=== PATIENT | male | born 1950 | race Native Hawaiian/Other Pacific Islander ===

== ENCOUNTER 2017-10-18 09:08 | Outpatient (CLI) | payer OTHER, MEDICARE ==
[2017-10-18 09:54] LABS: POTASSIUM 3.7 mmol/L (3.6-5.2)
== END 2017-10-18 22:15 | disposition home or self-care (01) ==
LOC: LABW 09:08
PROVIDERS: Internal Medicine
DX: E78.4 Other hyperlipidemia (principal); Z79.899 Other long term (current) drug therapy; Z51.81 Encounter for therapeutic drug level monitoring
CPT/HCPCS: 36415; 80048; 80061; 82550; 84450; 84460

== ENCOUNTER 2019-04-03 09:47 | Outpatient (CLI) | payer OTHER, MEDICARE ==
[2019-04-03 10:09] LABS: PLATELET COUNT 268 K/uL (142-355)
[2019-04-03 10:26] LABS: POTASSIUM 4.2 mmol/L (3.6-5.2)
== END 2019-04-03 20:18 | disposition home or self-care (01) ==
LOC: LABW 09:47
PROVIDERS: Internal Medicine
DX: I10 Essential (primary) hypertension (principal)
CPT/HCPCS: 36415; 80053; 80061; 81000; 84439; 84443; 85027

== ENCOUNTER 2019-10-22 08:32 | Outpatient (CLI) | payer OTHER, MEDICARE ==
[2019-10-22 09:25] LABS: POTASSIUM 4.4 mmol/L (3.6-5.2)
[2019-10-22 09:53] LABS: PLATELET COUNT 216 K/uL (142-355)
== END 2019-10-22 19:21 | disposition home or self-care (01) ==
LOC: LABW 08:32
PROVIDERS: Internal Medicine
DX: I10 Essential (primary) hypertension (principal); E78.00 Pure hypercholesterolemia, unspecified
CPT/HCPCS: 36415; 80053; 80061; 81000; 84439; 84443; 85027

== ENCOUNTER 2019-12-07 10:20 | Outpatient (CLI) | payer OTHER, MEDICARE | END 2019-12-07 19:31 | disposition home or self-care (01) | LOC: LAB 10:20 | DX: Z20.828 Contact with and (suspected) exposure to other viral communicable diseases (principal) | CPT/HCPCS: 87635; G2023; U0003 ==

== ENCOUNTER 2020-04-15 08:34 | Outpatient (CLI) | payer OTHER, MEDICARE ==
[2020-04-15 09:01] LABS: PLATELET COUNT 245 K/uL (142-355)
[2020-04-15 09:24] LABS: POTASSIUM 4.9 mmol/L (3.6-5.2)
== END 2020-04-15 21:54 | disposition home or self-care (01) ==
LOC: LABW 08:34
PROVIDERS: ATTEND Internal Medicine
DX: I10 Essential (primary) hypertension (principal); J44.9 Chronic obstructive pulmonary disease, unspecified; E78.00 Pure hypercholesterolemia, unspecified; F32.89 Other specified depressive episodes; Z12.5 Encounter for screening for malignant neoplasm of prostate; N40.0 Benign prostatic hyperplasia without lower urinary tract symptoms
CPT/HCPCS: 36415; 80053; 80061; 84153; 84439; 84443; 85027

== ENCOUNTER 2020-05-14 10:53 | Outpatient (CLI) | payer OTHER, MEDICARE | END 2020-05-14 19:39 | disposition home or self-care (01) | LOC: LAB 10:53 | PROVIDERS: ATTEND Internal Medicine | DX: J44.1 Chronic obstructive pulmonary disease with (acute) exacerbation (principal); Z11.59 Encounter for screening for other viral diseases | CPT/HCPCS: 87635; G2023; U0003 ==

== ENCOUNTER 2020-08-19 10:32 | Outpatient (CLI) | payer OTHER, MEDICARE | END 2020-08-19 21:02 | disposition home or self-care (01) | LOC: LABW 10:32 | PROVIDERS: ATTEND Internal Medicine Endocrinology, Diabetes & Metabolism | DX: E88.81 Metabolic syndrome and other insulin resistance (principal); Z79.899 Other long term (current) drug therapy | CPT/HCPCS: 36415; 83036 ==

== ENCOUNTER 2020-10-01 12:59 | Outpatient (CLI) | payer OTHER, MEDICARE ==
[~2020-10-01] VITALS: Ht 182.9 cm; Wt 79.8 kg
== END 2020-10-01 21:06 | disposition home or self-care (01) ==
LOC: DIABINF 12:59
PROVIDERS: ATTEND Internal Medicine Endocrinology, Diabetes & Metabolism
DX: E88.81 Metabolic syndrome and other insulin resistance (principal); I10 Essential (primary) hypertension; E78.2 Mixed hyperlipidemia; R73.9 Hyperglycemia, unspecified; Z72.0 Tobacco use; F41.8 Other specified anxiety disorders; F32.9 Major depressive disorder, single episode, unspecified; J43.8 Other emphysema
CPT/HCPCS: 82948; 96365; 96366; 96521; J1815; J1817

== ENCOUNTER 2020-10-03 12:58 | Outpatient (CLI) | payer OTHER, MEDICARE ==
[~2020-10-03] VITALS: Ht 182.9 cm; Wt 79.8 kg
== END 2020-10-03 20:10 | disposition home or self-care (01) ==
LOC: DIABINF 12:58
PROVIDERS: ATTEND Internal Medicine Endocrinology, Diabetes & Metabolism
DX: E88.81 Metabolic syndrome and other insulin resistance (principal); I10 Essential (primary) hypertension; E78.2 Mixed hyperlipidemia; E11.40 Type 2 diabetes mellitus with diabetic neuropathy, unspecified; Z72.0 Tobacco use; F41.1 Generalized anxiety disorder; F33.0 Major depressive disorder, recurrent, mild; J43.8 Other emphysema; I42.8 Other cardiomyopathies; N52.8 Other male erectile dysfunction
CPT/HCPCS: 82948; 96365; 96366; 96521; J1815; J1817

== ENCOUNTER 2020-10-08 12:37 | Outpatient (CLI) | payer OTHER, MEDICARE ==
[~2020-10-08] VITALS: Ht 182.9 cm; Wt 80.9 kg
== END 2020-10-08 23:04 | disposition home or self-care (01) ==
LOC: DIABINF 12:37
PROVIDERS: ATTEND Internal Medicine Endocrinology, Diabetes & Metabolism
DX: E88.81 Metabolic syndrome and other insulin resistance (principal); I10 Essential (primary) hypertension; E78.2 Mixed hyperlipidemia; E11.40 Type 2 diabetes mellitus with diabetic neuropathy, unspecified; Z72.0 Tobacco use; F41.1 Generalized anxiety disorder; F33.0 Major depressive disorder, recurrent, mild; J43.8 Other emphysema; I42.8 Other cardiomyopathies; N52.8 Other male erectile dysfunction
CPT/HCPCS: 82948; 96365; 96366; 96521; J1815; J1817

== ENCOUNTER 2020-10-10 12:39 | Outpatient (CLI) | payer OTHER, MEDICARE ==
[~2020-10-10] VITALS: Ht 182.9 cm; Wt 80.9 kg
== END 2020-10-10 19:20 | disposition home or self-care (01) ==
LOC: DIABINF 12:39
PROVIDERS: ATTEND Internal Medicine Endocrinology, Diabetes & Metabolism
DX: E88.81 Metabolic syndrome and other insulin resistance (principal); I10 Essential (primary) hypertension; E78.2 Mixed hyperlipidemia; E11.40 Type 2 diabetes mellitus with diabetic neuropathy, unspecified; Z72.0 Tobacco use; F41.1 Generalized anxiety disorder; F33.0 Major depressive disorder, recurrent, mild; J43.8 Other emphysema; I42.8 Other cardiomyopathies; N52.8 Other male erectile dysfunction
CPT/HCPCS: 82948; 96365; 96366; 96521; J1815; J1817

== ENCOUNTER 2020-10-17 12:20 | Outpatient (CLI) | payer OTHER, MEDICARE ==
[~2020-10-17] VITALS: Ht 182.9 cm; Wt 80.9 kg
== END 2020-10-17 16:00 | disposition home or self-care (01) ==
LOC: DIABINF 12:20
PROVIDERS: ATTEND Internal Medicine Endocrinology, Diabetes & Metabolism
DX: E11.9 Type 2 diabetes mellitus without complications (principal); Z72.0 Tobacco use; E78.2 Mixed hyperlipidemia; I10 Essential (primary) hypertension; F41.8 Other specified anxiety disorders; F32.89 Other specified depressive episodes; J43.8 Other emphysema; I34.0 Nonrheumatic mitral (valve) insufficiency; I51.7 Cardiomegaly; I77.819 Aortic ectasia, unspecified site
CPT/HCPCS: 82948; 96365; 96366; 96521; J1815; J1817

== ENCOUNTER 2020-10-24 12:48 | Outpatient (CLI) | payer OTHER, MEDICARE ==
[~2020-10-24] VITALS: Ht 182.9 cm; Wt 80.9 kg
== END 2020-10-24 16:00 | disposition home or self-care (01) ==
LOC: DIABINF 12:48
PROVIDERS: ATTEND Nurse Practitioner
DX: E11.40 Type 2 diabetes mellitus with diabetic neuropathy, unspecified (principal); I10 Essential (primary) hypertension; E78.00 Pure hypercholesterolemia, unspecified; N52.9 Male erectile dysfunction, unspecified; J43.8 Other emphysema; F17.210 Nicotine dependence, cigarettes, uncomplicated
CPT/HCPCS: 82948; 96365; 96366; 96521; J1815; J1817

== ENCOUNTER 2020-10-31 12:43 | Outpatient (CLI) | payer OTHER, MEDICARE ==
[~2020-10-31] VITALS: Ht 182.9 cm; Wt 80.9 kg
== END 2020-10-31 23:20 | disposition home or self-care (01) ==
LOC: DIABINF 12:43
PROVIDERS: ATTEND Internal Medicine Endocrinology, Diabetes & Metabolism
DX: E88.81 Metabolic syndrome and other insulin resistance (principal); I10 Essential (primary) hypertension; E78.2 Mixed hyperlipidemia; E11.40 Type 2 diabetes mellitus with diabetic neuropathy, unspecified; Z72.0 Tobacco use; F41.1 Generalized anxiety disorder; F33.8 Other recurrent depressive disorders; J43.8 Other emphysema; I42.8 Other cardiomyopathies; N52.8 Other male erectile dysfunction; H26.8 Other specified cataract
CPT/HCPCS: 82948; 96365; 96366; 96521; J1815; J1817

== ENCOUNTER 2020-11-07 12:42 | Outpatient (CLI) | payer OTHER, MEDICARE ==
[~2020-11-07] VITALS: Ht 182.9 cm; Wt 80.7 kg
== END 2020-11-07 22:06 | disposition home or self-care (01) ==
LOC: DIABINF 12:42
PROVIDERS: ATTEND Internal Medicine Endocrinology, Diabetes & Metabolism
DX: E88.81 Metabolic syndrome and other insulin resistance (principal); I10 Essential (primary) hypertension; E78.2 Mixed hyperlipidemia; E11.40 Type 2 diabetes mellitus with diabetic neuropathy, unspecified; Z72.0 Tobacco use; F41.1 Generalized anxiety disorder; F33.8 Other recurrent depressive disorders; J43.8 Other emphysema; I42.8 Other cardiomyopathies; N52.8 Other male erectile dysfunction; H26.8 Other specified cataract
CPT/HCPCS: 82948; 96365; 96366; 96521; J1815; J1817

== ENCOUNTER 2020-11-14 12:22 | Outpatient (CLI) | payer OTHER, MEDICARE ==
[~2020-11-14] VITALS: Ht 182.9 cm; Wt 80.7 kg
== END 2020-11-14 22:52 | disposition home or self-care (01) ==
LOC: DIABINF 12:22
PROVIDERS: ATTEND Nurse Practitioner
DX: E88.81 Metabolic syndrome and other insulin resistance (principal); I10 Essential (primary) hypertension; E78.2 Mixed hyperlipidemia; E11.40 Type 2 diabetes mellitus with diabetic neuropathy, unspecified; Z72.0 Tobacco use; F41.1 Generalized anxiety disorder; F33.8 Other recurrent depressive disorders; J43.8 Other emphysema; I42.8 Other cardiomyopathies; N52.8 Other male erectile dysfunction; H26.8 Other specified cataract
CPT/HCPCS: 82948; 96365; 96366; 96521; J1815; J1817

== ENCOUNTER 2020-11-21 12:54 | Outpatient (CLI) | payer OTHER, MEDICARE ==
[~2020-11-21] VITALS: Ht 182.9 cm; Wt 80.7 kg
== END 2020-11-21 19:10 | disposition home or self-care (01) ==
LOC: DIABINF 12:54
PROVIDERS: ATTEND Nurse Practitioner
DX: E88.81 Metabolic syndrome and other insulin resistance (principal); I10 Essential (primary) hypertension; E78.2 Mixed hyperlipidemia; E11.40 Type 2 diabetes mellitus with diabetic neuropathy, unspecified; Z72.0 Tobacco use; F41.1 Generalized anxiety disorder; F33.0 Major depressive disorder, recurrent, mild; J43.8 Other emphysema; I42.8 Other cardiomyopathies; N52.8 Other male erectile dysfunction; H26.8 Other specified cataract; J42 Unspecified chronic bronchitis
CPT/HCPCS: 82948; 96365; 96366; 96521; J1815; J1817

== ENCOUNTER 2020-11-28 12:35 | Outpatient (CLI) | payer OTHER, MEDICARE ==
[~2020-11-28] VITALS: Ht 182.9 cm; Wt 80.7 kg
== END 2020-11-28 22:38 | disposition home or self-care (01) ==
LOC: DIABINF 12:35
PROVIDERS: ATTEND Nurse Practitioner
DX: E88.81 Metabolic syndrome and other insulin resistance (principal); I10 Essential (primary) hypertension; E78.2 Mixed hyperlipidemia; E11.40 Type 2 diabetes mellitus with diabetic neuropathy, unspecified; Z72.0 Tobacco use; F41.1 Generalized anxiety disorder; F33.0 Major depressive disorder, recurrent, mild; J43.8 Other emphysema; I42.8 Other cardiomyopathies; N52.8 Other male erectile dysfunction; H26.8 Other specified cataract; J42 Unspecified chronic bronchitis
CPT/HCPCS: 82948; 96365; 96366; 96521; J1815; J1817

== ENCOUNTER 2020-12-05 12:26 | Outpatient (CLI) | payer OTHER, MEDICARE ==
[~2020-12-05] VITALS: Ht 182.9 cm; Wt 80.7 kg
== END 2020-12-05 20:00 | disposition home or self-care (01) ==
LOC: DIABINF 12:26
PROVIDERS: ATTEND Nurse Practitioner
DX: R73.03 Prediabetes (principal); E11.40 Type 2 diabetes mellitus with diabetic neuropathy, unspecified; I10 Essential (primary) hypertension; E78.00 Pure hypercholesterolemia, unspecified; N52.8 Other male erectile dysfunction; J43.8 Other emphysema; Z72.0 Tobacco use
CPT/HCPCS: 82948; 96365; 96366; 96521; J1817

== ENCOUNTER 2020-12-12 11:16 | Outpatient (CLI) | payer OTHER, MEDICARE ==
[~2020-12-12] VITALS: Ht 182.9 cm; Wt 80.7 kg
== END 2020-12-12 23:09 | disposition home or self-care (01) ==
LOC: DIABINF 11:16
PROVIDERS: ATTEND Nurse Practitioner
DX: R73.03 Prediabetes (principal); E11.40 Type 2 diabetes mellitus with diabetic neuropathy, unspecified; I10 Essential (primary) hypertension; E78.00 Pure hypercholesterolemia, unspecified; N52.8 Other male erectile dysfunction; J43.8 Other emphysema; Z72.0 Tobacco use
CPT/HCPCS: 82948; 96365; 96366; 96521; J1815; J1817

== ENCOUNTER 2020-12-19 12:24 | Outpatient (CLI) | payer OTHER, MEDICARE ==
[~2020-12-19] VITALS: Ht 182.9 cm; Wt 80.7 kg
== END 2020-12-19 19:07 | disposition home or self-care (01) ==
LOC: DIABINF 12:24
PROVIDERS: ATTEND Nurse Practitioner
DX: R73.03 Prediabetes (principal); E11.40 Type 2 diabetes mellitus with diabetic neuropathy, unspecified; I10 Essential (primary) hypertension; E78.00 Pure hypercholesterolemia, unspecified; N52.8 Other male erectile dysfunction; J43.8 Other emphysema; Z72.0 Tobacco use
CPT/HCPCS: 82948; 96365; 96366; 96521; J1815; J1817

== ENCOUNTER 2021-01-02 12:46 | Outpatient (CLI) | payer OTHER, MEDICARE ==
[~2021-01-02] VITALS: Ht 182.9 cm; Wt 80.9 kg
== END 2021-01-02 19:35 | disposition home or self-care (01) ==
LOC: DIABINF 12:46
PROVIDERS: ATTEND Nurse Practitioner
DX: R73.03 Prediabetes (principal); E11.40 Type 2 diabetes mellitus with diabetic neuropathy, unspecified; I10 Essential (primary) hypertension; E78.00 Pure hypercholesterolemia, unspecified; N52.8 Other male erectile dysfunction; J43.8 Other emphysema; Z72.0 Tobacco use
CPT/HCPCS: 82948; 96365; 96366; 96521; J1815; J1817

== ENCOUNTER 2021-03-12 08:28 | Outpatient (CLI) | payer OTHER, MEDICARE | END 2021-03-12 20:01 | disposition home or self-care (01) | LOC: MRI 08:28 | PROVIDERS: ATTEND Internal Medicine | DX: R41.82 Altered mental status, unspecified (principal) | CPT/HCPCS: 36415; 82565; 84520; A9576 ==

== ENCOUNTER 2023-05-31 12:53 | Outpatient (CLI) | payer OTHER, MEDICARE | END 2023-05-31 19:30 | disposition home or self-care (01) | LOC: LAB 12:53 | PROVIDERS: ATTEND Internal Medicine | DX: Z12.5 Encounter for screening for malignant neoplasm of prostate (principal); N40.0 Benign prostatic hyperplasia without lower urinary tract symptoms | CPT/HCPCS: 84153 ==